=== PATIENT | female | born 1990 | race Caucasian/White ===

== ENCOUNTER → 2017-04-07 14:02 | Outpatient (CLI) | payer OTHER, SELFPAY ==
[2017-04-07 20:39] LABS: Group B Strep DNA By PCR Negative (Negative); Internal Control PASS; Probe Check PASS; Specimen Processing Control PASS
== END ==
PROVIDERS: Visit Provider Obstetrics & Gynecology
DX: Z36.85 Encounter for antenatal screening for Streptococcus B (principal)
CPT/HCPCS: 87081; 87653

== ENCOUNTER 2017-05-09 03:13 | Inpatient (IN) | payer OTHER, SELFPAY ==
[2017-05-09] VITALS (21 sets, daily range): BP systolic 94–122; BP diastolic 55–76; PULSE 67–98; RESP 16–18; TEMP 35.6–37.2; O2SAT 92–100; BMI 32.5
[2017-05-09] MEDS: Lactated Ringers 1,000 ML 50 ML IV ×3 (03:40→08:30)
[2017-05-09 04:11] LABS: Hematocrit 25.4 % (37-47); Hemoglobin 8.3 g/dl (12.0-15.0); Mean Corp Hgb Conc 32.7 g/gl (32-36); Mean Corpuscular Hgb 31.1 pg (27.0-32.0); Mean Corpuscular Volume 95.1 fL (81-99); Mean Platelet Vol. 11.7 fl (6.2-12.0); Platelet Count 126 K/mm3 (150-450); RBC Distribution Width CV 12.8 % (11.6-14.6); RBC Distribution Width SD 42.2 fl (35.1-43.9); Red Blood Count 2.67 M/mm3 (4.2-5.4); White Blood Count 11.7 K/mm3 (4.4-11.0)
[2017-05-09 04:12] LABS: Scan Indicated on CBC? Y/N NO
--- NOTE | 2017-05-09 09:18 | PCM.PN.BLA ---
Progress Note LABOR PROGRESS NOTE Comfortable w/ epidural AVSS No pitocin EFM 120s with minimal variability. Accels noted. With ? subtle intermittent lates IBOW CX: / high LOP Much caput. AROM minimal clear fluid with bloody show IUPC placed, scalp lead placed. A/P 40 6/7 wk labor, AROM. IUPC placed and scalp lead. Fluid bolus prn. Pitocin PRN. Amnioinfusion PRN. Watch for continued progress, descent.
[2017-05-09] MEDS: Sodium Citrate/Citric Acid 30 ML UDC PO (10:40)
[2017-05-09] MEDS: Cefazolin 2 GM in 0.9% Normal Saline 100 ML IV (10:43)
[2017-05-09] MEDS: Oxytocin 30 units/NS 500 ml 30 UNITS/500 ML IV.SOLN 167 UNITS IV (10:50)
[2017-05-09] MEDS: Ondansetron 4 MG/2 ML Vial IV (11:00)
--- NOTE | 2017-05-09 11:21 | PLAC_PTH ---
PATIENT: JOE RAZA I LOC: WP U#:[id number] AGE/SX: 26/F ROOM: WP010 RE05/09/[address]: Dr. Ryann Rios MD : 1990 BED: 1 DIS: 05/12/2017 SPEC #: [id number] RECD: 05/09/17 13:13 STATUS: ASAD GRAEME #: [id number] ELIZABET: 05/09/17 11:[address]: Ryann Rios DEPT: SURGICAL PATHOLOGY RECD BY: Bakari Huggins ENTERED: 05/09/17 13:14 SP TYPE: PLACENTA OTHR DR: No Primary Care Phys Tissues: Placenta, NOS Procedures: Surgery Specimen Level V HEADER OPERATION: Primary caesarean section PRE-OP DIAGNOSIS: Bradycardia, nonreassuring FHT TISSUE SUBMITTED: Placenta MICROSCOPIC DIAGNOSIS Placenta: Placental disc - third trimester placenta (472 gm). - Focal acute vasculitis of subamniotic blood vessels. - Focal area of intraparenchymal hemorrhage (1 cm in greatest dimension). Membranes ? acute chorioamnionitis. Umbilical cord - three blood vessels and acute funisitis. SJ:vish 05/11/17 MICROSCOPIC DESCRIPTION Slides are reviewed. GROSS DESCRIPTION SPECIMEN: PLACENTA / CLINICAL INFORMATION: A. Weight: 4.214 kg B. Gestational Age: 40 weeks C. Sex: Male PLACENTAL WEIGHT (POST FIXATION): 472 gm PLACENTAL DIMENSIONS: 19 x 18 x 3 cm PLACENTAL SHAPE: Usual ovoid PLACENTAL WEIGHT FOR GESTATIONAL AGE: Within 10-99th percentile MEMBRANES - Present A. Insertion: Marginal B. Site of rupture from edge: 5 cm from edge of placental disc C. Color of membrane: Waller, mucoidy D. Abnormalities: None UMBILICAL CORD - Present A. Color: Waller-vences B. Insertion: Central C. Length: 28 cm D. Diameter: 1-1.5 cm E. Number of vessels: Three F. Abnormalities: Close to maternal end, the umbilical cord shows a few false knots. PLACENTAL DISC - Present A. Color of surface: Waller-vences B. surface abnormalities: None C. Maternal cotyledons: Intact with minimal tears D. Attached retro placental clot: No clot E. Cut surface: Dark red and spongy F. Lesions: Sections reveal a waller, indurated area measuring 1 cm in greatest dimension. G. Separate clot: Absent SECTIONS SUBMITTED: 1. Membrane roll 2. Cord, maternal end 3. Cord, end, lesion 4. Placental disc, and maternal surfaces 5. Placental disc, and maternal surfaces 6. Placental disc, and maternal surfaces DIXON:vish 05/10/17 TC:2 CPT: 29425
[2017-05-09] MEDS: Lactated Ringers 1,000 ML 100 ML IV (11:59)
[2017-05-09] MEDS: Ketorolac 30 MG/ML Syringe IV ×2 (13:27→18:08)
--- NOTE | 2017-05-09 17:52 | PCM.PN.BLA ---
Progress Note Postop Pt with poor po intake. N/V with motion. IV fluids increased Scopalamine patch ordered. Continue care. O2 on until wean per protocol.
--- NOTE | 2017-05-09 17:59 | OP.PCM_ITS ---
Operative Report Date of Procedure: 05/09/17 PROCEDURE: Primary C section Preoperative diagnosis: 40 6/7 wk EGA Labor Nonreassuring FHT tracing. 4 min deceleration unresponsive to interventions Postop diagnosis: 40 6/7 wk EGA Labor Nonreassuring FHT tracing. 4 min deceleration unresponsive to interventions Anesthesia: Epidural per Rey Olsen CRNA and Leobardo Khoury MD Surgeon: Ryann Rios MD Nurse Practical: FRED Thomas EBL 600 cc Complications: none Drains: Lu draining clear yellow urine Fluids: replacement LR Findings: At amniotomy, clear fluid was noted. Riggs viable male in vertex presentation, OP with significant caput. Apgars 8/9, Baby weight: 9# 5 oz There was a normal appearing uterus, fallopian tubes and ovaries bilaterally. PATH: Cord gases, placenta to path. Narrative account: After the risks, benefits and alternatives of the procedure were quickly reviewed with the patient, informed consent was obtained. The patient was taken to the Operating room with an IV running, an epidural catheter in place and a Lu in place . The epidural was dosed to surgical levels. the heart rate recovered in the OR to 130-140s (after 4 + min decel to 90s) The patient was positioned in dorsal supine position with leftward displacement of the uterus , , and prepped and draped in the usual sterile fashion. Once the epidural was deemed adequate, a Pfannenstiel skin incision was created using the knife . The incision was carried down to the rectus fascia using the knife. The fascia was nicked in the midline. The fascial incision was extended bilaterally using curved Danielson scissors. The superior aspect of the fascial incision was grasped with Luisa clamps and tented up and the underlying rectus abdominal muscles were dissected free. In a similar manner, the inferior aspect of the facial incision was grasped with Luisa clamps tented up and the underlying rectus abdominal muscles were dissected free. The rectus abdominis muscles were divided by blunt dissection and sharp dissection. The peritoneum was was identified and entered by blunt dissection. The rectus abdominis muscles and peritoneal incision were stretched laterally and a bladder blade was inserted. A bladder flap was created with Metzenbaum scissors and the bladder blade was removed and reinserted. The uterine incision was then created using Metzenbaum scissors. The uterine incision was extended by blunt dissection in a caudad- cephalad orientation using the paper wrapping machine operator's fingertips. Clear fluid was noted at amniotomy. The Vertex was then delivered. followed by the shoulders. The shoulders and rest of the body delivered easily. The OP and nares were bulb suctioned on the abdomen. The cord was clamped x two and cut and the baby was shown briefly to his parents and then passed off to the nurse awaiting delivery and Dr Garcia present for delivery due to bradycardia. The baby had a spontaneous vigorous cry and very good tone . The umbilical cord was doubly clamped. The placenta was then delivered and set aside . The uterus was exteriorized and cleared of clots and debris . The uterine incision was repaired with 1 Vicryl in a running locked fashion. A second imbricating layer was placed along the incision using 1 Monocryl. Excellent hemostasis was noted. The uterus, fallopian tubes and ovaries were then inspected and returned to the abdominal cavity. The gutters were cleared of clots and debris. The uterine incision and fallopian tubes were again inspected. And excellent hemostasis was noted. The rectus abdominis and peritoneal edges were reapproximated in the midline with interrupted vertical mattress stitches of 1 Vicryl . Excellent hemostasis was noted at the subfascial space The fascia was closed in a running nonlocked fashion with 1 Vicryl. The Subcutaneous fatty tissue was Bovie cauterized as needed for hemostasis. This layer was then reapproximated with a nonlocked running 3-0 Vicryl. The skin edges were closed in a Subcuticular stitch of 4-0 Monocryl. The incision was cleansed. Seri-strips , and a Mepilex dressing were applied. The patient was then transferred to the recovery room bed in stable condition after tolerating the procedure well. Sponge, lap, needle and instrument counts correct times two. Medications given preop and intraoperatively included: Ancef two grams IV was given precision grinder to the operating room. The patient also received Pitocin given IV after cord clamp, and Toradol 30 mg IV after cord clamp. For a complete listing of medications given preop and intraoperatively, please see the anesthesia record.
[2017-05-09] MEDS: Scopolamine 1mg/72hr Patch 1 PATCH TD (18:09)
[2017-05-09] MEDS: Lactated Ringers 1,000 ML 150 ML IV (19:17)
[2017-05-10] VITALS (12 sets, daily range): BP systolic 93–111; BP diastolic 55–72; PULSE 66–98; RESP 16–18; TEMP 36.4–37; O2SAT 95–100
[2017-05-10] MEDS: Ketorolac 30 MG/ML Syringe IV ×5 (00:09→23:51)
--- NOTE | 2017-05-10 00:17 | NURSING ---
pulse ox has been maintaining 98% o2 decreased to 1l and will continue to monitor.
[2017-05-10] MEDS: Lactated Ringers 1,000 ML 150 ML IV (01:54)
--- NOTE | 2017-05-10 02:15 | NURSING ---
o2 turned off will continue to monitor.
[2017-05-10 05:58] LABS: Hematocrit 31.2 % (37-47); Hemoglobin 10.3 g/dl (12.0-15.0); Mean Corpuscular Hgb 31.2 pg (27.0-32.0); Mean Corpuscular Volume 94.5 fL (81-99); Mean Platelet Vol. 11.4 fl (6.2-12.0); Platelet Count 148 K/mm3 (150-450); White Blood Count 14.2 K/mm3 (4.4-11.0)
[2017-05-10 05:59] LABS: Scan Indicated on CBC? Y/N NO
--- NOTE | 2017-05-10 08:11 | PCM.PN.OB ---
Subjective: POD#1 Primary C section bradycardia Doing well. Pain control adequate. more alert today. States plans to breast feed. Objective: brooks with minimal clear yellow urine noted (just emptied) - Physical Exam General: Alert, Oriented x3, Cooperative, No apparent distress HEENT: Atraumatic Neck: Supple Abdomen: Soft - Fundus firm and tender cw postop status, at approx 1-2 cm inf to umbilicus Abdomen softly distended and tympanitic Skin: Incision - Mepilex dressing CDI. Psych/Mental Status: Normal Affect Vital Signs Temp Pulse Resp BP Pulse Ox 97.8 F 72 16 95/55 L 97 05/10/17 04:30 05/10/17 05:45 05/10/17 05:45 05/10/17 05:45 05/10/17 05:45 Oxygen Flow Rate 1 Oxygen Delivery Method Room Air Weight: 97.069 kg Body Mass Index (BMI) 32.5 Intake and Output for Last 24 Hours 05/08/17 05/09/17 05/10/17 23:59 23:59 23:59 Intake Total 4711 / 4711 1890 / 1890 Output Total 1600 / 1600 1400 / 1400 Balance 3111 / 3111 490 / 490 Laboratory Tests Past 24 Hrs 05/10/17 05:45 WBC 14.2 H RBC 3.30 L Hgb 10.3 L Hct 31.2 L MCV 94.5 MCH 31.2 MCHC 33.0 RDW 13.0 RDW Differential 43.0 Plt Count 148 L MPV 11.4 Assessment/Plan POD#1 Primary C Section bradycardia Stable postop. inc diet and activity as tolerated. D/C brooks for voiding trial. s/l IV for continued toradol dosing. Continue care.
[2017-05-10] MEDS: 0.9% Saline Lock 10 ML Syringe IV ×3 (09:00→18:12)
[2017-05-10] MEDS: Senna/Docusate Sodium 1 Tablet PO (12:09)
[2017-05-10] MEDS: Prenatal Vits Tablet 1 TABLET PO (12:09)
--- NOTE | 2017-05-10 15:32 | CHAPLAIN ---
Type of Pastoral Visit _x__ Initial Visit ___ Follow-up Visit ___ On-call Visit ___ General Patient Visit ___ Spiritual Assessment ___ Family Conference ___ Bereavement ___ Rapid Response ___ Code Blue ___ Other (describe below) Pastoral Care Referral From _x__ Patient ___ Family ___ Nurse ___ Physician ___ Bread Icer ___ Java Technical Architect ___ Other (describe below) Sacrament/Intervention _x__ Active listening ___ Anointing ___ Islam ___ Bereavement ___ Communion ___ Jami exploration ___ ___ Life review _x__ Prayer ___ Reconciliation ___ Sacrament of Sick _x__ Supportive presence ___ Wedding ___ Other (describe below) Pastoral Comments
[2017-05-10] MEDS: oxyCODONE 5 MG Tablet PO (18:00)
[2017-05-11] MEDS: oxyCODONE 5 MG Tablet PO ×3 (04:59→21:34)
[2017-05-11 05:00] VITALS: BP 112/63; PULSE 91; RESP 18; TEMP 36.8; O2SAT 94
[2017-05-11] MEDS: Ketorolac 30 MG/ML Syringe IV (05:52)
--- NOTE | 2017-05-11 08:07 | PCM.PN.OB ---
Subjective: POD#2 Primary C/S bradycardia Doing well. Nursing, but baby not nursing well yet. Pain control adequate urinating well after brooks out. No concerns voiced. Plans to go home tomorrow if all remains OK. Objective: Lying semirecumbent in bed, holding sleeping baby - Physical Exam General: Alert, Oriented x3, Cooperative, No apparent distress HEENT: Atraumatic Neck: Supple Abdomen: Soft - Fundus firm NT at approx 2 cm inferior to umbliicus Skin: Incision - Mepilex CDI. no shadow drainage noted. Neurological: Cranial nerves II-XII grossly intact Psych/Mental Status: Normal Affect Vital Signs Temp Pulse Resp BP Pulse Ox 98.3 F 91 18 112/63 94 05/11/17 05:00 05/11/17 05:00 05/11/17 05:00 05/11/17 05:00 05/11/17 05:00 Oxygen Flow Rate 1 Oxygen Delivery Method Room Air Weight: 97.069 kg Body Mass Index (BMI) 32.5 Intake and Output for Last 24 Hours 05/09/17 05/10/17 05/11/17 23:59 23:59 23:59 Intake Total 4711 / 4711 1890 / 1890 Output Total 1600 / 1600 2950 / 2950 Balance 3111 / 3111 -1060 / -1060 Assessment/Plan POD# Primary C Section bradycardia Stable postop. Continue care.
[2017-05-11 08:38] VITALS: BP 116/67; PULSE 87; RESP 16; TEMP 36.6; O2SAT 99
--- NOTE | 2017-05-11 09:41 | NURSING ---
checked student's charting for completion
[2017-05-11] MEDS: Senna/Docusate Sodium 1 Tablet PO (13:29)
[2017-05-11] MEDS: Prenatal Vits Tablet 1 TABLET PO (13:29)
[2017-05-11 15:21] VITALS: BP 113/76; PULSE 73; RESP 15; TEMP 36.8; O2SAT 97
[2017-05-11 16:02] LABS: Pathology Specimen OB SEE PATHOLOGY REPORT
[2017-05-11 20:00] VITALS: BP 110/67; PULSE 96; RESP 18; TEMP 36.3; O2SAT 98
[2017-05-12 01:46] VITALS: BP 105/69; PULSE 87; RESP 16; TEMP 35.9
--- NOTE | 2017-05-12 08:02 | PCM.PN.OB ---
Subjective: POD#1 Primary C/S bradycardia Doing well. Up to chair this am. Moving around room well. no concerns voiced. Nursing is going a little better today. Pain control adequate. Wearing abdominal binder - Physical Exam General: Alert, Oriented x3, Cooperative, No apparent distress HEENT: Atraumatic Neck: Supple Abdomen: Soft - Fundus firm NT at approx 2-3 cm inferior to umbilicus Skin: Incision - Mepilex CDI. no shadow drainage. (pt to remove within 2-3d) Neurological: Cranial nerves II-XII grossly intact Psych/Mental Status: Normal Affect Vital Signs Temp Pulse Resp BP Pulse Ox 96.7 F L 87 16 105/69 98 05/12/17 01:46 05/12/17 01:46 05/12/17 01:46 05/12/17 01:46 05/11/17 20:00 Oxygen Flow Rate 1 Oxygen Delivery Method Room Air Weight: 97.069 kg Body Mass Index (BMI) 32.5 Intake and Output for Last 24 Hours 05/10/05/11/17 05/12/17 23:59 23:59 23:59 Intake Total 1890 / 1890 Output Total 2950 / 2950 Balance -1060 / -1060 Assessment/Plan POD# 3 Primary C Section bradycardia Stable postop. Discharge home today. RTO in 2-3 wk for postop check.
[2017-05-12] MEDS: Naproxen 250 MG Tablet PO (08:06)
[2017-05-12] MEDS: Senna/Docusate Sodium 1 Tablet PO (08:06)
--- NOTE | 2017-05-12 08:07 | PCM.DCCSEC ---
Discharge Diet: No Restrictions Discharge Activity: May not drive while taking narcotic pain medications., May Shower, May Take a Tub Bath May resume sexual activity in: 4-6 weeks Lifting Restrictions: 20 pounds Additional Activity Instructions:: Nothing in the vagina for 4-6 weeks. You may return to work/school in 6 weeks. Change Dressing in (Days):: 14 Remove Dressing in (days):: 14 Cleanse incision/area with: Soap & Water, Keep Dressing Clean & Dry Additional Instructions: If you experience any of the following, contact your healthcare provider. Bleeding that soaks a pad every hour for 2 hours Fever 100.4 or higher Unrelieved incision or abdominal pain Swelling, redness, discharge or bleeding from your incision Problems urinating (including inability to urinate or burning while urinating). Visual changes Severe headache Flu-like symptoms Pain or redness in one of both of your breasts Pain, warmth, tenderness or swelling in your legs, especially the calf area Frequent nausea and vomiting Symptoms of depression or anxiety If you experience any of the following, call 911 or go to the nearest Emergency Room. Chest pain Problems breathing Seizure activity Partial or complete paralysis of a body part, slurred speech, weakness or drooping of the face, or a sudden inability to walk or hold your balance Allergies/Adverse Reactions: Allergies amoxicillin Allergy (Verified 05/09/17 01:46) Diarrhea Medications to take at Discharge Vits [Prenatabs FA ] 05/09/17 Acetaminophen [Tylenol] 1,000 mg PO Q8H PRN tablet 05/12/17 Naproxen [Naprosyn] 250 - 500 mg PO Q8H PRN PRN #30 tab 05/12/17 Oxycodone [Oxyir] 5 - 10 mg PO Q4H PRN PRN 7 Days #28 tab 05/12/17 Senna/Docusate Sodium [Senokot-S] 1 - 2 tab PO DAILY PRN #30 tab 05/12/17 The following prescriptions were given: Oxycodone [Oxyir] 5 - 10 mg PO Q4H PRN PRN 7 Days #28 tab PRN Reason: Mod-Severe Pain (-12/20) Naproxen [Naprosyn] 250 - 500 mg PO Q8H PRN PRN #30 tab PRN Reason: Mild Pain (1-05/20) Senna/Docusate Sodium [Senokot-S] 1 - 2 tab PO DAILY PRN #30 tab PRN Reason: Constipation Orders to be completed after discharge: Electric breast pump Time Frame: 1 Year, Location: None Selected Follow-Up: Call to make an appointment with your doctor for an incision check in 1-2 weeks. You will also need a 6 week post- follow up appointment. Please Follow Up With: Ryann Rios MD - [phone] When: Call to make an appointment for an incision check in 2-3 weeks. Primary Care Physician: Care Physician,No Primary [Primary Care Provider] -
--- NOTE | 2017-05-12 08:11 | DCINST_ITS ---
Discharge Diet: No Restrictions Discharge Activity: May not drive while taking narcotic pain medications., May Shower, May Take a Tub Bath May resume sexual activity in: 4-6 weeks Lifting Restrictions: 20 pounds Additional Activity Instructions:: Nothing in the vagina for 4-6 weeks. You may return to work/school in 6 weeks. Change Dressing in (Days):: 14 Remove Dressing in (days):: 14 Cleanse incision/area with: Soap & Water, Keep Dressing Clean & Dry Additional Instructions: If you experience any of the following, contact your healthcare provider. * Bleeding that soaks a pad every hour for 2 hours * Fever 100.4 or higher * Unrelieved incision or abdominal pain * Swelling, redness, discharge or bleeding from your incision * Problems urinating (including inability to urinate or burning while urinating) . * Visual changes * Severe headache * Flu-like symptoms * Pain or redness in one of both of your breasts * Pain, warmth, tenderness or swelling in your legs, especially the calf area * Frequent nausea and vomiting * Symptoms of depression or anxiety If you experience any of the following, call 911 or go to the nearest Emergency Room. * Chest pain * Problems breathing * Seizure activity * Partial or complete paralysis of a body part, slurred speech, weakness or drooping of the face, or a sudden inability to walk or hold your balance Allergies/Adverse Reactions: Allergies amoxicillin Allergy (Verified 05/09/17 01:46) Diarrhea Medications to take at Discharge Vits [Prenatabs FA ] 05/09/17 Acetaminophen [Tylenol] 1,000 mg PO Q8H PRN tablet 05/12/17 Naproxen [Naprosyn] 250 - 500 mg PO Q8H PRN PRN #30 tab 05/12/17 Oxycodone [Oxyir] 5 - 10 mg PO Q4H PRN PRN 7 Days #28 tab 05/12/17 Senna/Docusate Sodium [Senokot-S] 1 - 2 tab PO DAILY PRN #30 tab 05/12/17 The following prescriptions were given: Oxycodone [Oxyir] 5 - 10 mg PO Q4H PRN PRN 7 Days #28 tab PRN Reason: Mod-Severe Pain () Naproxen [Naprosyn] 250 - 500 mg PO Q8H PRN PRN #30 tab PRN Reason: Mild Pain (-05/20) Senna/Docusate Sodium [Senokot-S] 1 - 2 tab PO DAILY PRN #30 tab PRN Reason: Constipation Orders to be completed after discharge: Electric breast pump Time Frame: 1 Year, Location: None Selected Follow-Up: Call to make an appointment with your doctor for an incision check in 1-2 weeks. You will also need a 6 week post- follow up appointment. Please Follow Up With: Ryann Rios MD - [phone] When: Call to make an appointment for an incision check in 2-3 weeks. Primary Care Physician: Care Physician,No Primary [Primary Care Provider] -
--- NOTE | 2017-05-12 08:11 | PCM.DC.SUM ---
Discharge Date and Diagnosis Date of Admission: 05/09/17 - 40 6/7 wk labor Date of Discharge: 05/12/17 - C section bradycardia Hospital Course and Treatment Operations: - - Augmentation of labor. Primary C section bradycardia Summary of Care Provided: The patient is a 26 year old female at 40 6/7 wk presents in labor. Progressed to 6 cm. bradycardia to 90s unresponsive to interventions. To Primary C section for bradycardia. ERIKA as FHR recovery noted in OR. Primary C section on 05/09/17: 9# 5 oz male. uncomplicated procedure Postop recovery uneventful. Hgb Improved after surgery Home on POD#3 per pt request. Discharge Diet: No Restrictions Discharge Activity: May not drive while taking narcotic pain medications., May Shower, May Take a Tub Bath May resume sexual activity in: 4-6 weeks Additional Activity Instructions:: Nothing in the vagina for 4-6 weeks. You may return to work/school in 6 weeks. Change Dressing in (Days):: 14 Remove Dressing in (days):: 14 Cleanse incision/area with: Soap & Water, Keep Dressing Clean & Dry Home Medications: Medications to take at Discharge Vits [Prenatabs FA ] 05/09/17 Acetaminophen [Tylenol] 1,000 mg PO Q8H PRN tablet 05/12/17 Naproxen [Naprosyn] 250 - 500 mg PO Q8H PRN PRN #30 tab 05/12/17 Oxycodone [Oxyir] 5 - 10 mg PO Q4H PRN PRN 7 Days #28 tab 05/12/17 Senna/Docusate Sodium [Senokot-S] 1 - 2 tab PO DAILY PRN #30 tab 05/12/17 Following Prescrptions Were Given to Patient: Oxycodone [Oxyir] 5 - 10 mg PO Q4H PRN PRN 7 Days #28 tab PRN Reason: Mod-Severe Pain (4-10/10) Naproxen [Naprosyn] 250 - 500 mg PO Q8H PRN PRN #30 tab PRN Reason: Mild Pain (1-3/10) Senna/Docusate Sodium [Senokot-S] 1 - 2 tab PO DAILY PRN #30 tab PRN Reason: Constipation Other Amb Orders: Electric breast pump Time Frame: 1 Year, Location: None Selected Primary Care Physician: Care Physician,No Primary [Primary Care Provider] - Please Follow Up With: Ryann Rios MD - [phone] When: Call to make an appointment for an incision check in 2-3 weeks. Meaningful Use Info Meaningful Use Diagnoses (Choose all that apply): None applicable
[2017-05-12 08:15] VITALS: BP 117/86; PULSE 101; RESP 18; TEMP 36.8
[2017-05-12 14:34] VITALS: BP 123/81; PULSE 87; RESP 18; TEMP 36.2
== END 2017-05-12 16:05 | disposition home or self-care (01) | DRG 766 ==
LOC: WPOUT 03:16
PROVIDERS: Obstetrics & Gynecology; Admitting Provider Obstetrics & Gynecology; Visit Provider Obstetrics & Gynecology
DX: O76 Abnormality in fetal heart rate and rhythm complicating labor and delivery (principal); O48.0 Post-term pregnancy; Z37.0 Single live birth; Z3A.40 40 weeks gestation of pregnancy
CPT/HCPCS: 59025; 59050; 85027; 86850; 86900; 88307; 94762; 99218; J7120; A4216; G0378; J2405